=== PATIENT | female | born 1970 | race Caucasian/White ===

== ENCOUNTER → 2020-05-05 08:50 | Outpatient (CLI) | payer MEDICARE, MEDICAID, SELFPAY ==
--- NOTE | 2020-05-05 08:52 | DI.US.S_ITS ---
PROCEDURE: US THYROID INDICATIONS: swallowing and breathing diffifulty lower neck TECHNIQUE: Real-time scanning was performed of the thyroid gland, with image documentation. COMPARISON: None. FINDINGS: Right: Thyroid lobe measures 5.0 x 2.8 x 2.7 cm, and is homogeneous in echotexture. Left: Thyroid lobe measures 5.2 x 2.9 x 2.2 cm, and is homogenous in echotexture. Isthmus: 6 mm thick. Nodule designated right #1 Location: Right upper pole Size: 1.4 x 0.8 x 1.2 cm cm. Composition: Solid Echogenicity: Hypoechoic Shape: Wider than tall Margins: Smooth Echogenic foci: None Total points: 4 ACR TI-RADS category: Moderately suspicious Nodule designated right #3 Location: Mid right lobe Size: 1.6 x 0.8 x 0.6 cm. Composition: Solid Echogenicity: Hypoechoic Shape: Taller than wide Margins: Lobulated Echogenic foci: Punctate Total points: 12 ACR TI-RADS category: Highly suspicious Nodule designated left #1 Location: Upper pole of the left lobe Size: 0.9 x 0.7 x 0.7 cm. Composition: Solid Echogenicity: Hypoechoic Shape: Taller than wide Margins: Irregular Echogenic foci: Punctate Total points: 11 ACR TI-RADS category: Highly suspicious Nodule designated left #4 Location: Left lower lobe Size: 2.0 x 1.5 x 1.6 cm. Composition: Solid Echogenicity: Isoechoic Shape: Taller than wide Margins: Smooth Echogenic foci: None Total points: 6 ACR TI-RADS category: Moderately suspicious IMPRESSION: Multiple bilateral thyroid nodules, for which ultrasound-guided FNA is recommended for nodule designated RIGHT #3, and LEFT #4. Recommend continued ultrasound surveillance for the remaining above nodules. ACR TI-RADS definitions and recommendations: TI-RADS 1 (benign): 0 points. FNA not needed. TI-RADS 2 (not suspicious): 2 points. FNA not needed. TI-RADS 3 (mildly suspicious): 3 points. * FNA if 2.5 cm or larger, follow up if 1.5 cm or larger (at 1, 3, and 5 years). TI-RADS 4 (moderately suspicious): 4-6 points. * FNA if 1.5 cm or larger, follow up if 1 cm or larger (at 1, 2, 3, and 5 years). TI-RADS 5 (highly suspicious): 7 points or more. * FNA if 1 cm or larger, follow up if 0.5 cm or larger (every year for 5 years). Dictated by: Gera Pratt M.D. on 05/05/2020 at 17:11 Approved by: Gera Pratt M.D. on 05/05/2020 at 17:19
== END ==
PROVIDERS: PCP Family Medicine; Referring Provider Family Medicine; Visit Provider Family Medicine
DX: R13.10 Dysphagia, unspecified (principal); R06.89 Other abnormalities of breathing; E04.2 Nontoxic multinodular goiter; F31.9 Bipolar disorder, unspecified; F41.0 Panic disorder [episodic paroxysmal anxiety]
CPT/HCPCS: 76536; 99214

== ENCOUNTER → 2020-05-13 13:49 | Outpatient (CLI) | payer MEDICARE, SELFPAY | PROVIDERS: PCP Family Medicine; Referring Provider Family Medicine; Visit Provider Family Medicine | DX: R06.89 Other abnormalities of breathing (principal); R13.14 Dysphagia, pharyngoesophageal phase; Z53.8 Procedure and treatment not carried out for other reasons ==

== ENCOUNTER → 2020-05-16 09:31 | Outpatient (CLI) | payer MEDICARE, MEDICAID, SELFPAY ==
--- NOTE | 2020-05-16 | DI.CT.S_ITS ---
PROCEDURE: CT SOFT TISSUE NECK W CON INDICATIONS: abnormal us TECHNIQUE: After the administration of intravenous contrast, 3.0 mm axial sections acquired from the sella to the aortic arch. Additional oblique axial 3.0 mm sections acquired through the pharynx. 3 mm thick coronal and sagittal reformats were generated. For radiation dose reduction, the following was used: automated exposure control. COMPARISON: [facility], US, US THYROID, 05/05/2020, 9:24. [facility], CR, CHEST 2 VIEW, 08/16/2017, 10:28. FINDINGS: Image quality: This examination is limited by involuntary motion artifact. Lymph nodes: No enlarged lymph nodes seen throughout the neck. Vessels: Visualized vasculature appears patent. Neck spaces: The oropharynx, nasopharynx, and pharynx demonstrate no mucosal lesions. The vocal cords, false vocal cords, pyriform sinuses, epiglottis, vallecula, and tongue base all appear normal. Extramucosal spaces appear unremarkable. Glands: The parotid and submandibular glands appear normal. The thyroid demonstrates a heterogeneous appearance, with nodularity, right worse than left. No significant mass effect can be seen upon the trachea or the other surrounding structures. Miscellaneous: Visualized brain and orbits appear normal. Lung apices appear clear. Superficial soft tissues appear normal. Incidental note is made of a metallic body ornamentation artifact. Bones: No suspicious bony lesions. Visualized sinuses and mastoids appear unremarkable. There is moderate disc space narrowing seen at the C5-C6 level, with associated endplate irregularity and endplate osteophyte formation. Posteriorly projected endplate osteophytes are seen at this level. Milder degenerative changes are seen elsewhere. IMPRESSION: Heterogeneous, nodular thyroid, without significant mass effect. No imaging explanation is found for this patient's presenting symptoms. Focal C5-C6 degenerative change. Dictated by: Maico Rubio M.D. on 05/16/2020 at 9:57 Approved by: Maico Rubio M.D. on 05/16/2020 at 10:00
== END ==
PROVIDERS: PCP Family Medicine; Referring Provider Family Medicine; Visit Provider Family Medicine
DX: R06.89 Other abnormalities of breathing (principal); R13.14 Dysphagia, pharyngoesophageal phase; M47.812 Spondylosis without myelopathy or radiculopathy, cervical region; E04.2 Nontoxic multinodular goiter
CPT/HCPCS: 70491

== ENCOUNTER → 2020-05-19 10:55 | Outpatient (CLI) | payer MEDICARE, MEDICAID, SELFPAY ==
--- NOTE | 2020-05-19 10:57 | DI.RAD.S_ITS ---
PROCEDURE: FL BARIUM SWALLOW W AIR COMPARISON: None. INDICATIONS: difficulty swallowing, globus sensation, reflux? FINDINGS: Double-contrast examination demonstrates no definite mucosal abnormality. No strictures identified. There is mild esophageal dysmotility. There is normal passage of a calibrated barium tablet No diverticulum seen. No hiatal hernia identified. IMPRESSION: Mild esophageal dysmotility No stricture Dictated by: Gera Pratt M.D. on 05/19/2020 at 15:46 Approved by: Gera Pratt M.D. on 05/19/2020 at 15:48
== END ==
PROVIDERS: PCP Family Medicine; Referring Provider Family Medicine; Visit Provider Family Medicine
DX: R13.14 Dysphagia, pharyngoesophageal phase (principal); K22.4 Dyskinesia of esophagus
CPT/HCPCS: 74221

== ENCOUNTER → 2020-06-06 15:14 | Outpatient (CLI) | payer MEDICARE, MEDICAID, SELFPAY ==
[2020-06-07 06:46] LABS: COVID19 Sendout Not Detected (Not Detect)
== END ==
PROVIDERS: PCP Family Medicine; Visit Provider Physician Assistant
DX: Z11.59 Encounter for screening for other viral diseases (principal)
CPT/HCPCS: 87635

== ENCOUNTER 2020-06-09 11:50 | Day surgery (SDC) | payer MEDICARE, MEDICAID, SELFPAY ==
[2020-06-09 12:19] VITALS: BP 136/97; PULSE 86; RESP 16; TEMP 36.2; O2SAT 98; BMI 36.1
[2020-06-09] MEDS: LACTATED RINGERS 1,000 ML 200 ML IV (12:33)
--- NOTE | 2020-06-09 13:00 | PM.PREOP ---
Pre-operative Note COVID-19 COVID-19 status: Negative Interval Note History & Physical reviewed/Exam performed by Physician: Yes Changes to H&P: No ASA Class (for procedural sedation): II
[2020-06-09] MEDS: MIDAZOLAM 5 MG/5 ML VIAL IV (13:06)
[2020-06-09] MEDS: fentaNYL 250 MCG/5 ML INJ IV (13:06)
[2020-06-09] MEDS: LIDOCAINE 4% SOLN 50 ML 20 ML TOP (13:07)
--- NOTE | 2020-06-09 13:14 | P.OP.ENDO_ITS ---
Operative Date/Time/Diagnoses Date of procedure: 06/09/20 Time of procedure: 13:14 Pre-op diagnosis: dysphagia Post-op diagnosis: same Procedure & Clinicians Study performed: Esophagoduodenoscopy Same procedure as scheduled: Yes Indications: 49-year-old woman with GERD presents with dysphagia here for diagnostic esophagoduodenoscopy Surgeon: Mark Polo Procedure Notes SCOAP/Timeout: Performed Procedure in detail: Patient placed in left lateral decubitus position. Time out was performed. Procedural sedation was administered with Versed and Fentanyl. A bite block was placed. the scope was inserted into the mouth and advanced through the esophagus and into the stomach. The pylorus was intubated and the duodenum was normal to the 2nd portion. The scope was retroflexed within the stomach and there was a small hiatal hernia. No ulcers, or gastritis. The scope was withdrawn into the esophagus the Z line was seen at 40 cm from the incisions. There was no Romero's esophagitis or masses or strictures. The e sophagus was normal in its appearance Stomach was desufflated and scope removed. Patient tolerated procedure well. Sedation minutes: 5 Findings: other findings (Normal esophagus) Specimen(s): none sent Complications: none Impression: Normal esophagus and stomach Post-procedure Recommendations: Reflux diet Plan for aftercare: Scheduled to see ENT please keep appointment Disposition: same day surgery
[2020-06-09 13:17] VITALS: BP 145/98; PULSE 85; RESP 14; TEMP 36.6; O2SAT 97
[2020-06-09 13:21] VITALS: BP 134/95; PULSE 85; RESP 13; O2SAT 92
[2020-06-09 13:26] VITALS: BP 139/97; PULSE 81; RESP 9; O2SAT 95
[2020-06-09 13:31] VITALS: BP 132/92; PULSE 84; RESP 12; O2SAT 95
--- NOTE | 2020-06-09 13:33 | SUR.PHASEI ---
Denied abdominal pain
[2020-06-09 13:36] VITALS: BP 139/93; PULSE 81; RESP 12; TEMP 37.2; O2SAT 96
== END 2020-06-09 13:48 | disposition home or self-care (01) ==
PROVIDERS: PCP Family Medicine; Referring Provider Surgery; Visit Provider Surgery
PROC: 0DJ08ZZ Inspection of Upper Intestinal Tract, Via Natural or Artificial Opening Endoscopic (ICD-10-PCS; CPT 43235; principal; 2020-06-09 13:00)
DX: R13.14 Dysphagia, pharyngoesophageal phase (principal); K44.9 Diaphragmatic hernia without obstruction or gangrene; K21.9 Gastro-esophageal reflux disease without esophagitis; E66.01 Morbid (severe) obesity due to excess calories; E11.9 Type 2 diabetes mellitus without complications; I10 Essential (primary) hypertension; E78.5 Hyperlipidemia, unspecified; F31.9 Bipolar disorder, unspecified; M79.7 Fibromyalgia; F17.200 Nicotine dependence, unspecified, uncomplicated; Z68.35 Body mass index [BMI] 35.0-35.9, adult; Z79.84 Long term (current) use of oral hypoglycemic drugs
CPT/HCPCS: 43235; J2250; J3010